=== PATIENT | male | born 1960 | race Caucasian/White ===

== ENCOUNTER → 2016-10-06 | Outpatient (CLI) | payer OTHER ==
[~2016-10-06] MED LIST: AMLO10TA82 PO; AMPH20TA2 PO; ASPI-9 PO; ASPI-983 PO; ASPI325T32 PO; ATOR10TA PO; ATOR10TA66 PO; CLON0.5T3 PO; CLON1TAB27 PO; CLOP75TA28 PO; DESV100T PO; GBPN300C PO; LISI10TA2 PO; METO-272 PO; MULT-608 PO; OLAN20TA3 PO; OMEP20TA7 PO; PROP40TA5 PO; TEST200V3 IM; TMZP15C PO; [UNRECOGNIZED DRUG - OTHER] PO
== END ==
LOC: CARD 09:38
PROVIDERS: ATTEND Internal Medicine
DX: R00.0 Tachycardia, unspecified (principal); R53.83 Other fatigue
CPT/HCPCS: 93005; 93225; 93226

== ENCOUNTER 2016-11-19 08:46 | Outpatient (CLI) | payer OTHER ==
[2016-11-19] VITALS (7 sets, daily range): BP systolic 132–166; BP diastolic 93–115
[~2016-11-19] VITALS: Ht 185.4 cm; Wt 95.3 kg
[~2016-11-19 08:46] MED LIST changes: -AMPH20TA2 PO; -ASPI-9 PO; -ASPI-983 PO; -ASPI325T32 PO; -ATOR10TA PO; -ATOR10TA66 PO; -CLON0.5T3 PO; -CLOP75TA28 PO; -LISI10TA2 PO; -METO-272 PO; -OMEP20TA7 PO; -PROP40TA5 PO
--- OUTSIDE RECORDS SUMMARY | 2016-11-19 08:50 | XMS REPORT | Continuity of Care Document ---
Author Author [facility] Organization [facility] Address Unknown Phone Unavailable Allergies Active Description Code Type Severity Reaction Onset Reported/Identified Relationship to Patient Clinical Status Yes No Known Drug Allergies [id number] Drug Allergy Unknown N/ A 11/05/2010 Medications Problems Date Dx Coded Attending Type Code Diagnosis Diagnosed By 04/20/2011 Ot 288.60 LEUKOCYTOSIS, UNSPECIFIED 04/20/2011 Ot 296.80 BIPOLAR DISORDER, UNSPECIFIED 04/20/2011 Ot 305.1 TOBACCO USE DISORDER 04/20/2011 Ot 783.21 LOSS OF WEIGHT 04/20/2011 Ot 785.6 ENLARGEMENT LYMPH NODES 04/20/2011 Ot V58.69 OTH MED,LT,CURRENT USE 01/30/2012 Ot 530.11 REFLUX ESOPHAGITIS 01/30/2012 Ot 535.40 OTH SPECIFIED GASTRITIS,W/O MENTION OF H 10/06/2016 Ot 288.60 LEUKOCYTOSIS, UNSPECIFIED 10/06/2016 Ot 296.80 BIPOLAR DISORDER, UNSPECIFIED 10/06/2016 Ot 305.1 TOBACCO USE DISORDER 10/06/2016 Ot 783.21 LOSS OF WEIGHT 10/06/2016 Ot 785.6 ENLARGEMENT LYMPH NODES 10/06/2016 Ot V58.69 OTH MED,LT,CURRENT USE 10/06/2016 Ot 346.90 MIGRAINE UNSPECIFIED W/O INTRACT MGRN W/ 10/06/2016 Ot 346.90 MIGRAINE UNSPECIFIED W/O INTRACT MGRN W/ 10/06/2016 Ot V81.5 SCREEN FOR NEPHROPATHY 10/06/2016 Ot 288.60 LEUKOCYTOSIS, UNSPECIFIED 10/06/2016 Ot 784.2 SWELLING IN HEAD NECK 10/06/2016 Ot 785.6 ENLARGEMENT LYMPH NODES 10/06/2016 Ot 787.20 DYSPHAGIA, UNSPECIFIED 10/06/2016 Ot V58.69 OTH MED,LT,CURRENT USE 10/06/2016 Ot 785.6 ENLARGEMENT LYMPH NODES 10/06/2016 Ot 787.20 DYSPHAGIA, UNSPECIFIED 10/06/2016 Ot V72.84 EXAM PRE-OPERATIVE NOS 10/06/2016 Ot 238.71 ESSENTIAL THROMBOCYTHEMIA 10/06/2016 Ot 288.60 LEUKOCYTOSIS, UNSPECIFIED 10/06/2016 Ot 305.1 TOBACCO USE DISORDER 10/06/2016 Ot 530.11 REFLUX ESOPHAGITIS 10/06/2016 Ot 535.40 OTH SPECIFIED GASTRITIS,W/O MENTION OF H 10/06/2016 Ot 785.6 ENLARGEMENT LYMPH NODES 10/06/2016 Ot V58.69 OTH MED,LT,CURRENT USE 10/06/2016 Ot 238.71 ESSENTIAL THROMBOCYTHEMIA 10/06/2016 Ot 288.60 LEUKOCYTOSIS, UNSPECIFIED 10/06/2016 Ot 785.6 ENLARGEMENT LYMPH NODES 10/06/2016 Ot V58.69 OTH MED,LT,CURRENT USE 10/06/2016 BARBARA NABEELANASTACIO N Ot 238.71 ESSENTIAL THROMBOCYTHEMIA 10/06/2016 DEBORA JIMENEZ N Ot 288.60 LEUKOCYTOSIS, UNSPECIFIED 10/06/2016 DEBORA JIMENEZ N Ot 785.6 ENLARGEMENT LYMPH NODES 10/06/2016 DEBORA JIMENEZ N Ot V58.69 OTH MED,LT,CURRENT USE 10/06/2016 ANA WATERS FARM MANAGER Ot 305.1 TOBACCO USE DISORDER 10/06/2016 ANA WATERS FARM MANAGER Ot 585.3 CHRONIC KIDNEY DISEASE, STAGE III ( MODER 10/06/2016 ANA WATERS FARM MANAGER Ot 780.79 OTH MALAISE FATIGUE 10/06/2016 ANA WATERS FARM MANAGER Ot 785.6 ENLARGEMENT LYMPH NODES 10/06/2016 ANA WATERSP Ot V58.69 OTH MED,LT,CURRENT USE 10/06/2016 BARBARA BOBAN N Ot 296.80 BIPOLAR DISORDER, UNSPECIFIED 10/06/2016 BARBARA BOBAN N Ot 780.79 OTH MALAISE FATIGUE 10/06/2016 BARBARA BOBAN N Ot 785.6 ENLARGEMENT LYMPH NODES 10/06/2016 BARBARADEBORA N Ot V58.69 OTH MED,LT,CURRENT USE 10/06/2016 BARBARA BOBAN N Ot 296.80 BIPOLAR DISORDER, UNSPECIFIED 10/06/2016 BARBARA BOBAN N Ot 780.79 OTH MALAISE FATIGUE 10/06/2016 DEBORA JIMENEZ N Ot 785.6 ENLARGEMENT LYMPH NODES 10/06/2016 DEBORA JIMENEZ Ot V58.69 OTH MED,LT,CURRENT USE 10/06/2016 WATERSANA FARM MANAGER Ot 296.80 BIPOLAR DISORDER, UNSPECIFIED 10/06/2016 WATERSANA FARM MANAGER Ot 780.79 OTH MALAISE FATIGUE 10/06/2016 ANA WATERS FARM MANAGER Ot 785.6 ENLARGEMENT LYMPH NODES 10/06/2016 ANA WATERS FARM MANAGER Ot V58.69 OTH MED,LT,CURRENT USE 10/06/2016 DEBORA JIMENEZ N Ot 296.80 BIPOLAR DISORDER, UNSPECIFIED 10/06/2016 DEBORA JIMENEZ N Ot 780.79 OTH MALAISE FATIGUE 10/06/2016 DEBORA JIMENEZ N Ot 785.6 ENLARGEMENT LYMPH NODES 10/06/2016 DEBORA JIMENEZ Ot V58.69 OTH MED,LT,CURRENT USE 10/07/2016 SANTOS CANALES, FRANCIA Lopez Ot R00.0 TACHYCARDIA, UNSPECIFIED 10/07/2016 FRANCIA GRAHAM MD Ot R53.83 OTHER FATIGUE Procedures Results Encounters ACCT No. Visit Date/Time Discharge Status Pt. Type Provider Facility Loc./Unit Complaint [id number] 03/05/2015 02:15:00 2014 23:59:59 CLS Outpatient DEBORA JIMENEZ [facility] ONC [id number] 08/09/2014 13:59:00 2013 23:59:59 CLS Outpatient ANA [employer] FARM MANAGER [facility] ONC [id number] 08/02/2014 08:46:00 2013 23:59:59 CLS Outpatient DEBORA JIMENEZ N [facility] ONC [id number] 02/08/2014 08:55:00 2013 23:59:59 CLS Outpatient DEOBRA JIMENEZ N [facility] ONC [id number] 08/09/2013 14:01:00 2012 23:59:59 CLS Outpatient ANA WATERS FARM MANAGER [facility] ONC [id number] 02/07/2013 13:15:00 2012 23:59:59 CLS Outpatient BARBARA NABEELANASTACIO Aris [facility] ONC [id number] 10/06/2016 09:38:00 ACT Outpatient FRANCIA GRAHAM MD [facility] CARD FATIGUE [id number] 08/05/2012 13:28:00 Document Registration [id number] 02/04/2012 09:01:00 Document Registration [id number] 01/30/2012 06:00:00 Document Registration [id number] 01/29/2012 09:01:00 Document Registration [id number] 01/19/2012 09:00:00 Document Registration [id number] 01/15/2012 10:37:00 Document Registration [id number] 10/27/2011 06:55:00 Document Registration [id number] 10/24/2011 07:32:00 Document Registration [id number] 07/30/2011 14:39:00 Document Registration [id number] 04/07/2011 14:17:00 Document Registration
[2016-11-19] MEDS ORDERED: NS IV 1000 ML 1,000 ML ONE (10:52)
[2016-11-19] MEDS ORDERED: HEParin (CATH LAB) 2,000 ML IV ONE (10:52)
[2016-11-19] MEDS ORDERED: LIDOCAINE 1% INJ 20 ML (XYLOCAINE) VIAL ONE (10:52)
[2016-11-19] MEDS ORDERED: NS IV 1000 ML 1,000 ML IV SCH ×2 (11:09→12:41)
[2016-11-19 11:19] LABS: MEAN PLATELET VOLUME 10.1 FL (7.4-10.4); RED BLOOD COUNT 5.05 10^6/uL (4.35-5.85); RED CELL DISTRIBUTION WIDTH 13.8 % (10.0-14.5); WHITE BLOOD COUNT 10.9 10^3/uL (4.3-11.0)
[2016-11-19] MEDS ORDERED: MIDAZOLAM 5 MG/5 ML (VERSED) VIAL ONE (11:21)
[2016-11-19] MEDS ORDERED: fentaNYL INJECTION 100 MCG/2 ML AMP ONE (11:21)
[2016-11-19 11:24] LABS: INR 0.9 (0.8-1.4); PROTHROMBIN TIME PATIENT 11.8 SEC (12.2-14.7)
[2016-11-19] MEDS ORDERED: PROP40TA5 PO (11:25)
[2016-11-19] MEDS ORDERED: OMEP20TA7 PO (11:25)
[2016-11-19] MEDS ORDERED: LISI10TA2 PO (11:25)
[2016-11-19] MEDS ORDERED: CLON0.5T3 PO (11:25)
[2016-11-19] MEDS ORDERED: AMPH20TA2 PO (11:25)
--- NOTE | 2016-11-19 11:28 | Diagnostic Imaging Report ---
INDICATION: Coronary artery disease, preop cardiac catheterization. Frontal chest obtained at 11:16 a.m. Heart and mediastinal silhouette appear unremarkable. The lungs are clear. There is no pneumothorax or pleural fluid. IMPRESSION: No acute process in the chest. Dictated by: Dictated on workstation # [id number]
[2016-11-19 11:33] LABS: ALANINE AMINOTRANSFERASE 19 U/L (0-55); ALBUMIN 4.5 G/DL (3.2-4.5); ANION GAP 13 MMOL/L (5-14); ASPARTATE AMINO TRANSFERASE 17 U/L (5-34); BILIRUBIN,TOTAL 0.4 MG/DL (0.1-1.0); BLOOD UREA NITROGEN 12 MG/DL (7-18); BUN/CREATININE RATIO 11; CALCIUM 9.6 MG/DL (8.5-10.1); CARBON DIOXIDE 21 MMOL/L (21-32); CHLORIDE 105 MMOL/L (98-107); CHOLESTEROL 253 MG/DL (< 200); CREATININE SERUM 1.07 MG/DL (0.60-1.30); DIRECT LDL 177 MG/DL (1-129); GFR ESTIMATED > 60; GLUCOSE 109 MG/DL (70-105); POTASSIUM 4.4 MMOL/L (3.6-5.0); SODIUM 139 MMOL/L (135-145); TOTAL PROTEIN 7.6 G/DL (6.4-8.2); TRIGLYCERIDES 253 MG/DL (<150); VLDL CHOLESTEROL 51 MG/DL (5-40)
[2016-11-19] MEDS ORDERED: FLU TRIvalent (5 YOA+) 2016-17 (AFLURIA) 0.5 ML IM ONE (11:45)
--- NOTE | 2016-11-19 12:41 | Cardiac Procedure Note-CS/ASA ---
Pre-Procedure Note Pre-Op Procedure Note H&P Reviewed The H&P was reviewed, patient examined and no changes noted. Date H&P Reviewed: Nov 19, 2016 Time H&P Reviewed: 12:41 Conscious Sedation Pre-Proced Time Reviewed: 12:41 ASA Class: 3 Airway Mallampati Classification: ([place] appropriate class) I. II. III, IV Lungs Heart ASA score ASA 1: a normal healthy patient ASA 2: a patient with a mild systemic disease (mid diabetes, controlled hypertension, obesity x ASA 3: a patient with a severe systemic disease that limits activity (angina , COPD, prior Myocardial infarction) ASA 4: a patient with an incapacitating disease that is a constant threat to life (CHF, renal failure) ASA 5: a moribund patient not expected to survive 24 hrs. (ruptured aneurysm) ASA 6: a declared brain patient whose organs are being harvested. For emergent operations, add the letter E after the classification Grade 3 Sedation Plan: Analgesia, Amnesia, Plan communicated to team members, Discussed options with patient/fam, Discussed risks with patient/fam Note The patient is an appropriate candidate to undergo the planned procedure, sedation, and anesthesia. The patient immediately re-assessed prior to indication. CT SAMUEL MD Nov 19, 2016 12:41
[2016-11-19] MEDS ORDERED: ATOR10TA PO (12:43)
[2016-11-19] MEDS ORDERED: ASPI325T32 PO (12:43)
--- NOTE | 2016-11-19 12:44 | Discharge Inst-Post CATH ---
Discharge Inst-CATH Post Cardiac Cath D/C Inst Follow Up/Plan Appointment with Dr Gerald Gonzalez's office next week Appointment with Dr Ng's office in 2-4 weeks CARDIAC CATH DISCHARGE INSTRUCTIONS *Hold Metformin for 48 hours post heart cath. ACTIVITY * Go Home directly and rest. * Limit activity of the leg (or wrist if it was used) for 7 days including aerobics, swimming, jogging, bicycling, etc. * Restrict stair-climbing for 7 days if possible, if not, climb up with your non -cath leg, then bring together on the same step. * Avoid lifting, pushing, pulling or excessive movement of the affected extremity for 7 days. * Customary sexual activity may be resumed after 2 days-use caution not to use a position that strains or causes pain to the affected extremity. * No driving for 24 hours. * NO SMOKING. * Avoid straining for bowel movements for 7 days. * Gentle walking on level ground is allowed. * Returning to work will depend on the type of procedure and the results. Your doctor will discuss this with you. CALL YOUR DOCTOR FOR ANY OF THE FOLLOWING: *If bleeding from the puncture site occurs- Apply gentle pressure to site with clean cloth and call your doctor or EMS. * If a knot or lump forms under the skin, increases in size, or causes pain. * If bruising appears to be worsening or moving further down your leg instead of disappearing. * Temperature above 101 F. CARE OF YOUR GROIN INCISION; * Bruising or purple discoloration of the skin near the puncture site is common. * You may shower only, no bathtub bathing for 5 days. Be careful to avoid slipping as your leg may feel stiff. * If a closure device was used on your femoral artery, please see the attached guide regarding care of the device and your leg. * REMOVE the dressing from your groin the next day after your procedure in the shower. CARE OF YOUR WRIST INCISION; * Bruising or purple discoloration of the skin near the puncture site is common. * You may shower. * DO NOT submerge wrist. * Remove dressing in [address] NG MD Nov 19, 2016 12:44
[2016-11-19] MEDS ORDERED: PATIENT MAY USE OWN MEDS, ALL PO SCH (12:45)
--- NOTE | 2016-11-19 13:54 | ECHOCARDIOGRAPHY REPORT ---
PROCEDURE PHYSICIAN: CT SAMUEL DATE OF PROCEDURE: 11/19/2016 TWO DIMENSIONAL ECHOCARDIOGRAM REPORT PRIMARY PHYSICIAN: OTHER PHYSICIAN: REFERRING PHYSICIAN: Dr. Machado ORDERING PHYSICIAN: INDICATION FOR THE PROCEDURE: Shortness of breath, palpitations MEASUREMENTS DERIVED VALUES LV DIAMETER (LAX) NORMALS NORMALS Diastolic 5.2 (3.6-5.2) Eject. Fract. 40% (60%+/-6%) Systolic (2.3-3.9) Diastolic Vol. % Shortening (0.22-0.42) Systolic Vol. Aortic Root IVS THICKNESS Diastolic 1. (0.6-1.1) LVPW THICKNESS Diastolic 1. (0.6-1.1) LA DIAMETER Systolic 3.8 (2.1-3.7) FINDINGS: 1. Technical quality is good. 2. The left ventricle is dilated with diffuse left ventricular hypokinesia more pronounced at the inferior wall. Systolic function is reduced. Estimated ejection fraction 40%. 3. The left atrium is normal in size. No clot or thrombus were seen within the left atrium. 4. The right atrium and right ventricle are normal in size. No clot or thrombus were seen within the right side. 5. Mitral valve is normal in morphology with mild mitral regurgitation noted by color Doppler flow. No mitral valve prolapse. No mitral valve stenosis. 6. Aortic valve is trileaflet with normal opening and closing pattern. No significant aortic stenosis or regurgitation was seen. 7. Tricuspid valve is normal in morphology with mild tricuspid regurgitation noted by color Doppler flow. Doppler across tricuspid valve estimated pulmonary artery pressure of 34+ right atrial pressure. 8. Pulmonic valve is functioning normally. 9. No pericardial effusion. CONCLUSION: 1. Dilated left ventricle with diffuse left ventricular hypokinesia more pronounced at the inferior wall. Systolic function is reduced. Estimated ejection fraction 40%. 2. Mild mitral and tricuspid regurgitation. 3. Estimated pulmonary artery pressure of 40 mmHg. Job ID: [id number] Dictated Date: 11/19/2016 13:24:00 County Judge Date: 11/19/2016 13:49:38 / kyle
--- NOTE | 2016-11-19 15:04 | STRESS TEST ---
PROCEDURE PHYSICIAN: CT SAMUEL EXERCISE STRESS ECHOCARDIOGRAM REPORT DATE OF PROCEDURE: 11/19/2016 REFERRING PHYSICIAN: Dr. Machado. INDICATION FOR THE PROCEDURE: Hypertension. Baseline heart rate is 98, baseline blood pressure: 156/85. Baseline EKG: Sinus rhythm with no ischemic changes. SUMMARY: The patient started exercising with a baseline heart rate, blood pressure, EKG mentioned above. He was able to exercise for a total of 5 minutes on standard [place] protocol, achieving maximum heart rate of 159, which is 96% of maximum expected heart rate. With peak exercise level, EKG was showing minimal nondiagnostic changes. Blood pressure was 156/85. During recovery, heart rate and blood pressure returned to baseline. EKG returned to baseline. Echocardiographic images were acquired and reviewed in the parasternal long axis parasternal short axis, apical 4 chamber and apical 2 chamber views. Review of the images showed normal left ventricular size with hypokinesia at the inferior wall that slightly improved during exercise test, lateral wall and anterior wall appeared to be mildly hypokinetic. CONCLUSION: 1. Fair exercise tolerance a total of 5 minutes on standard [place] protocol. Total 7 METs, achieving 96% of maximum expected heart rate. 2. Nondiagnostic EKG changes with exercise. Returned to baseline during recovery. 3. Mild hypokinesia involving the inferior wall, the resting images with slight improvement during stress test. 4. Exercise-induced hypokinesia involving the anterior wall, anterolateral wall. Job ID: [id number] Dictated Date: 11/19/2016 13:35:01 Coal Conveyor Operator Date: 11/19/2016 15:00:09 / kyle
[2016-11-19] MEDS ORDERED: ACETAMINOPHEN 325 MG TABLET/CAPLET (TYLENOL) PO PRN (16:00)
--- NOTE | 2016-11-20 12:14 | CARDIAC CATHETERIZATION ---
PROCEDURE PHYSICIAN: CT SAMUEL DATE OF PROCEDURE: 11/19/2016 REFERRING PHYSICIAN: Dr. Santi Machado BRIEF HISTORY: Mr. Noland is a 55-year-old gentleman with a history of hypertension. I saw him in my office for increasing shortness of breath, palpitations. He underwent an exercise stress echo which showed hypokinesia at the inferior wall at rest, improved at stress with hypokinesia induced by stress involving the anterior wall and lateral wall. He was brought for cardiac catheterization. PROCEDURE NOTE: After explaining the procedure to the patient, all pros and cons were explained. All questions were answered. The patient signed the consent that he was placed on the cardiac catheterization laboratory. The right groin was prepped in a sterile fashion. Local anesthesia applied to right groin. 6-Croat[place] sheath was placed in the right femoral artery. Combination of right and left Stephanie catheter were used to access the right and left coronary system. Multiple views were obtained. Pigtail catheter advanced to the left ventricular cavity. Left ventriculogram was done. Pullback LV to aorta was done. The aortic arch angiogram was done. At the end of the procedure, sheath was removed. Mynx device deployed. Hemostasis achieved. FINDINGS: HEMODYNAMICS: LV pressure 120/7, end-diastolic pressure of 7, aortic pressure 131/83, mean of 90. ANATOMY: 1. Left main coronary artery is bifurcating to left anterior descending and left circumflex artery with no obstructive disease in the left main coronary artery. 2. Left anterior descending artery is moderate in size with 70% stenosis in the mid LAD. 3. Left circumflex artery is moderate in size. First obtuse marginal branch has 60% stenosis. 4. Right coronary artery is dominant artery, totally occluded at the midportion, getting collateral from the left system. 5. Left ventricle is dilated with diffuse left ventricular hypokinesia more pronounced at the inferior wall. Estimated ejection fraction 40%. 6. Aortic arch angiogram aortic arch is normal in size. No dissection or aneurysm was noted. Origin of the innominate artery, left subclavian and left carotid appeared normal. CONCLUSION: 1. Severe multivessel disease including total occlusion of the right coronary artery, getting collateral from the left system. Severe stenosis at the mid LAD, moderate to severe stenosis at the first obtuse marginal branch. 2. Dilated left ventricle with diffuse left ventricular hypokinesia more pronounced at the inferior wall. Estimated ejection fraction 40%. DISCUSSION AND RECOMMENDATION: Mr. Noland had hypokinesia at the inferior wall appeared to be improved during stress test, suggestive of viability of the inferior wall. He would benefit from evaluation for bypass surgery. I will arrange for evaluation. The patient will be discharged home today. Job ID: [id number] Dictated Date: 11/19/2016 12:50:13 Geology Faculty Member Date: 11/20/2016 11:48:07 / kyle
--- NOTE | 2016-11-20 12:17 | DISCHARGE SUMMARY ---
PROCEDURE PHYSICIAN: CT SAMUEL DATE OF PROCEDURE: 11/19/2016 REFERRING PHYSICIAN: Dr. Santi Machado BRIEF HISTORY: Mr. Noland is a 55-year-old gentleman with a history of hypertension. I saw him in my office for increasing shortness of breath, palpitations. He underwent an exercise stress echo which showed hypokinesia at the inferior wall at rest, improved at stress with hypokinesia induced by stress involving the anterior wall and lateral wall. He was brought for cardiac catheterization. PROCEDURE NOTE: After explaining the procedure to the patient, all pros and cons were explained. All questions were answered. The patient signed the consent that he was placed on the cardiac catheterization laboratory. The right groin was prepped in a sterile fashion. Local anesthesia applied to right groin. 6-Nepali sheath was placed in the right femoral artery. Combination of right and left Stephanie catheter were used to access the right and left coronary system. Multiple views were obtained. Pigtail catheter advanced to the left ventricular cavity. Left ventriculogram was done. Pullback LV to aorta was done. The aortic arch angiogram was done. At the end of the procedure, sheath was removed. Mynx device deployed. Hemostasis achieved. FINDINGS: HEMODYNAMICS: LV pressure 120/7, end-diastolic pressure of 7, aortic pressure 131/83, mean of 90. ANATOMY: 1. Left main coronary artery is bifurcating to left anterior descending and left circumflex artery with no obstructive disease in the left main coronary artery. 2. Left anterior descending artery is moderate in size with 70% stenosis in the mid LAD. 3. Left circumflex artery is moderate in size. First obtuse marginal branch has 60% stenosis. 4. Right coronary artery is dominant artery, totally occluded at the midportion, getting collateral from the left system. 5. Left ventricle is dilated with diffuse left ventricular hypokinesia more pronounced at the inferior wall. Estimated ejection fraction 40%. 6. Aortic arch angiogram aortic arch is normal in size. No dissection or aneurysm was noted. Origin of the innominate artery, left subclavian and left carotid appeared normal. CONCLUSION: 1. Severe multivessel disease including total occlusion of the right coronary artery, getting collateral from the left system. Severe stenosis at the mid LAD, moderate to severe stenosis at the first obtuse marginal branch. 2. Dilated left ventricle with diffuse left ventricular hypokinesia more pronounced at the inferior wall. Estimated ejection fraction 40%. DISCUSSION AND RECOMMENDATION: Mr. Noland had hypokinesia at the inferior wall appeared to be improved during stress test, suggestive of viability of the inferior wall. He would benefit from evaluation for bypass surgery. I will arrange for evaluation. The patient will be discharged home today. FINAL DIAGNOSIS: 1. Coronary artery disease. 2. Congestive heart failure, chronic compensated left ventricular systolic dysfunction, ischemic cardiomyopathy. Ejection fraction 40%. 3. Hypertension. 4. Hyperlipidemia. Job ID: [id number] Dictated Date: 11/19/2016 12:50:13 Hydrator Date: 11/20/2016 12:14:16/kyle
== END 2016-11-19 18:00 | disposition home or self-care (01) ==
LOC: CARD 08:46 → ICU 13:00 → CARD 18:00
PROVIDERS: ATTEND Internal Medicine Cardiovascular Disease
DX: I10 Essential (primary) hypertension (principal); R00.0 Tachycardia, unspecified; F31.9 Bipolar disorder, unspecified; Z72.0 Tobacco use; Z79.899 Other long term (current) drug therapy
CPT/HCPCS: 36221; 36415; 71010; 80053; 80061; 85027; 85610; 85730; 87081; 93306; 93351; 93458

== ENCOUNTER → 2016-12-29 | Outpatient (CLI) | payer OTHER ==
[~2016-12-29] MED LIST changes: +AMPH20TA2 PO; +ASPI-9 PO; +ASPI-983 PO; +ASPI325T32 PO; +ATOR10TA PO; +ATOR10TA66 PO; +CLON0.5T3 PO; +CLOP75TA28 PO; +LISI10TA2 PO; +METO-272 PO; +OMEP20TA7 PO; +PROP40TA5 PO
--- NOTE | 2016-12-29 12:53 | Diagnostic Imaging Report ---
INDICATION: Shortness of air. Compared 11/19/2016. FINDINGS: Left pleural fluid, subpulmonic as well as interfissural, has developed in the interim. The right lung and pleural space negative. Sternal wires midline. The heart size and vascularity within normal limits. IMPRESSION: Development of left-sided pleural fluid. Interval sternotomy. No pneumothorax or pneumonia. Dictated by: Dictated on workstation # [id number]
== END ==
LOC: RAD 11:35
PROVIDERS: ATTEND Internal Medicine
DX: R06.00 Dyspnea, unspecified (principal)
CPT/HCPCS: 71020

== ENCOUNTER → 2017-01-01 | Outpatient (CLI) | payer OTHER ==
[2017-01-01 11:51] LABS: CREATININE SERUM 2.39 MG/DL (0.60-1.30)
--- NOTE | 2017-01-01 13:15 | Diagnostic Imaging Report ---
PROCEDURE: CT chest without contrast. TECHNIQUE: Multiple contiguous axial images were obtained through the chest without the use of intravenous contrast. INDICATION: Dyspnea. FINDINGS: There is a small/ moderate left pleural effusion with small amount of pleural fluid within the left major fissure. Minimal associated pulmonary atelectasis is seen with no significant consolidation or mass. No suspicious nodule. Bilateral emphysema changes seen. There are multiple subpleural blebs seen in the upper lungs. The heart size is normal. No pericardial effusion of significance. Evidence of CABG surgery is seen with sternotomy wires noted. There is minimal distraction and 4-mm gap in the sternum inferiorly. The sternum fragments superiorly are better opposed. No significant fluid collection at the operative site with stranding seen, normal for recent surgery. The thoracic aorta is normal in caliber. No mediastinal mass or lymphadenopathy. No axillary lymphadenopathy. The hilar vessels are not opacified with no obvious hilar mass seen. There is fullness in the lateral aspect of the upper left kidney of uncertain etiology. Suggestion of a 2.4-cm cyst in the upper pole of the right kidney is seen. The osseous structures appear grossly unremarkable. IMPRESSION: 1. There is a small to moderate left pleural effusion. 2. Fullness in the lateral aspect of the upper left kidney of uncertain etiology. Ultrasound evaluation is recommended. Report was stat faxed to office of Dr. Anton Joe @ 1:13 PM/janette. Dictated by: Dictated on workstation # [id number]
== END ==
LOC: RAD 11:17
PROVIDERS: ATTEND Internal Medicine Critical Care Medicine
DX: J90 Pleural effusion, not elsewhere classified (principal); I25.10 Atherosclerotic heart disease of native coronary artery without angina pectoris; E78.2 Mixed hyperlipidemia
CPT/HCPCS: 36415; 71250; 82565; 84520

== ENCOUNTER 2017-01-05 15:03 | Observation (INO) | payer OTHER ==
[~2017-01-05] VITALS: Ht 185.4 cm; Wt 90.7 kg
[2017-01-05] VITALS (9 sets, daily range): BP systolic 87–113; BP diastolic 50–64
[~2017-01-05 15:03] MED LIST changes: -ASPI-9 PO; -ASPI-983 PO; -ATOR10TA66 PO; -CLOP75TA28 PO; -METO-272 PO
[2017-01-05] MEDS ORDERED: CLOP75TA28 PO (15:43)
[2017-01-05] MEDS ORDERED: ATOR10TA66 PO (15:43)
[2017-01-05] MEDS ORDERED: METO-272 PO (15:43)
[2017-01-05] MEDS ORDERED: ASPI-9 PO (15:43)
[2017-01-05 15:47] LABS: MEAN PLATELET VOLUME 9.6 FL (7.4-10.4); RED BLOOD COUNT 3.48 10^6/uL (4.35-5.85); RED CELL DISTRIBUTION WIDTH 14.2 % (10.0-14.5)
[2017-01-05] MEDS ORDERED: ASPI-983 PO (15:47)
[2017-01-05 16:10] LABS: ALANINE AMINOTRANSFERASE 17 U/L (0-55); ALBUMIN 3.1 G/DL (3.2-4.5); ANION GAP 15 MMOL/L (5-14); ASPARTATE AMINO TRANSFERASE 11 U/L (5-34); BILIRUBIN,TOTAL 0.4 MG/DL (0.1-1.0); BLOOD UREA NITROGEN 64 MG/DL (7-18); BUN/CREATININE RATIO 12; CALCIUM 9.4 MG/DL (8.5-10.1); CARBON DIOXIDE 17 MMOL/L (21-32); CHLORIDE 99 MMOL/L (98-107); CHOLESTEROL 103 MG/DL (< 200); CREATININE SERUM 5.27 MG/DL (0.60-1.30); DIRECT LDL 22 MG/DL (1-129); GFR ESTIMATED 11; GLUCOSE 109 MG/DL (70-105); MAGNESIUM 1.4 MG/DL (1.8-2.4); POTASSIUM 5.2 MMOL/L (3.6-5.0); SODIUM 131 MMOL/L (135-145); TRIGLYCERIDES 174 MG/DL (<150); VLDL CHOLESTEROL 35 MG/DL (5-40)
[2017-01-05 16:15] LABS: TROPONIN I < 0.30 NG/ML (<0.30)
[2017-01-05] MEDS ORDERED: NS IV 1000 ML 1,000 ML ONE (16:28)
[2017-01-05] MEDS ORDERED: NS IV 1000 ML 1,000 ML IV SCH ×2 (17:00→18:30)
--- NOTE | 2017-01-05 17:08 | Short Stay Summary ---
History of Present Illness History of Present Illness Reason for visit/HPI Hypotensive shock This is a 56 years old gentleman with history of coronary artery disease as described below. Had extensive history, he was seen by his primary care physician Dr. Graham this afternoon and I was called due to the fact that he has been hypotensive. It felt that he has worsening of his symptoms, has been complaining of generalized fatigue, diaphoresis, lethargy. He is reporting night sweats for the last 24 hour generalized fatigue and loss of energy. Was having shortness of breath and noted to have left-sided pleural effusion which was worsening, had CT scan of the chest. Date of Admission Jan 05, 2017 at 15:15 Date of Discharge January 05, 2017 Attending Physician José Ng MD Admitting Physician Francia Graham MD Consult Allergies and Home Medications Allergies Coded Allergies: bupropion (Verified Allergy, Severe, SEIZURE, 01/05/17) Home Medications Aspirin 81 Mg Tablet.dr, 81 MG PO DAILY, (Reported) Atorvastatin Calcium 10 Mg Tablet, 10 MG PO HS, (Reported) Clonazepam 0.5 Mg Tablet, 0.5 MG PO BID PRN for ANXIETY, (Reported) Clopidogrel Bisulfate 75 Mg Tablet, 75 MG PO DAILY, (Reported) Lisinopril 10 Mg Tablet, 10 MG PO DAILY, (Reported) Metoprolol Succinate 50 Mg Tab.er.24h, 50 MG PO HS, (Reported) Omeprazole 20 Mg Tablet.dr, 20 MG PO DAILY PRN for INDIGESTION, (Reported) Temazepam 15 Mg Capsule, 15-30 MG PO HS PRN for SLEEP, (Reported) TAKES 1-2 (15 MG) CAPSULES Past Kssznie-Ciemwn-Bnaucx Hx Patient Social History Marrital Status: single Alcohol Use: Denies Use Recreational Drug Use: No Type Used: Cigarettes Physical Abuse Screen: No Sexual Abuse: No Recent Hopitalizations: Yes Seasonal Allergies Seasonal Allergies: No Surgeries HX Surgeries: Yes Respiratory Hx Respiratory Disorders: No Cardiovascular Hx Cardiovascular Disorders: No Neurological Hx Neurological Disorders: No Reproductive System Hx Reproductive Disorders: No Sexually Transmitted Disease: No Genitourinary Hx Genitourinary Disorders: No Genitourinary Disorders: Renal Failure Gastrointestinal Hx Gastrointestinal Disorders: No Gastrointestinal Disorders: Gastroesophageal Reflux Musculoskeletal Hx Musculoskeletal Disorders: No Endocrine Hx Endocrine Disorders: Yes (enlarged lymph nodes; pre-lymphoma) HEENT HX ENT Disorders: No Psychosocial Behavioral Health Disorders: ADD/ADHD, Anxiety, PTSD, Bipolar, Depression Blood Transfusions Hx Blood Disorders: Yes (ELEVATED WBC AND PLATELETS IN THE PAST) Family Medical History Other Significan Family Hx: noncontributory to his current condition Constitutional: see HPI, chills, diaphoresis, No dizziness, fever, malaise, weakness, No weight gain, No weight loss, No other EENTM: no symptoms reported, see HPI Respiratory: see HPI, No cough, dyspnea on exertion, No hemoptysis, orthopnea, No phlegm, short of breath, No stridor, No wheezing, No other Cardiovascular: see HPI, chest pain, No edema, No Hx of Intervention, palpitations, No syncope, No vascular heart diseas, No other Gastrointestinal: no symptoms reported, see HPI Genitourinary: see HPI, decreased output, No discharge, No dysuria, No frequency, No hematuria, No hesitancy, No incontinence, No nocturia, No pain, No other Musculoskeletal: see HPI, No back pain, No gout, No joint pain, No joint swelling, No muscle pain, No muscle stiffness, No muscle cramps, No muscle twitching, No muscle weakness, No neck pain, No other Skin: no symptoms reported, see HPI Psychiatric/Neurological: No Symptoms Reported, See HPI Physical Exam Vital Signs Vital Sign - Last 12Hours 01/05/17 15:10 Temp 98.6 Pulse 112 Resp 14 B/P (MAP) 94/52 Pulse Ox 98 O2 Delivery Room Air Capillary Refill : Less Than 3 Seconds General Appearance: WD/WN, Moderate Distress Eyes: Bilateral Eye EOMI, Bilateral Eye Normal Inspection, Bilateral Eye PERRL HEENT: PERRL/EOMI, TMs Normal, Normal ENT Inspection, Pharynx Normal Neck: Full Range of Motion, Normal Inspection, Non Tender, Supple, Carotid Bruit Respiratory: Chest Non Tender, No Accessory Muscle Use, No Respiratory Distress , Crackles, Decreased Breath Sounds Cardiovascular: Regular Rate, Rhythm, No JVD, Normal Peripheral Pulses, Systolic Murmur, Gallop/S3 Gastrointestinal: Normal Bowel Sounds, No Organomegaly, No Pulsatile Mass, Non Tender, Soft Back: Normal Inspection, No CVA Tenderness, No Vertebral Tenderness Extremity: Normal Capillary Refill, Normal Inspection, Normal Range of Motion, Non Tender, No Calf Tenderness, No Pedal Edema Neurologic/Psychiatric: Alert, Oriented x3, No Motor/Sensory Deficits, Normal Mood/Affect Skin: Normal Color, Warm/Dry Lymphatic: No Adenopathy Clinical Quality Measures DVT/VTE Risk/Contraindication: Risk Factor Score Per Nursin RFS Level Per Nursing on Admit: 1=Low/No VTE PPX Short Stay Diagnosis Discharge Diagnosis-Short Stay Admission Diagnosis: Hypotension Severe sepsis Coronary artery disease Congestive heart failure chronic compensated left ventricular systolic dysfunction Final Discharge Diagnosis: Hypotension Severe sepsis Coronary artery disease Congestive heart failure, chronic compensated left ventricular systolic dysfunction, ischemic cardiomyopathy. Conclusion Labs Laboratory Tests 01/05/17 15:40: White Blood Count 63.0*H, Red Blood Count 3.48L, Hemoglobin 10.4L, Hematocrit 31L, Mean Corpuscular Volume 88, Mean Corpuscular Hemoglobin 30, Mean Corpuscular Hemoglobin Concent 34, Red Cell Distribution Width 14.2, Platelet Count 680H, Mean Platelet Volume 9.6, Sodium Level 131L, Potassium Level 5.2H, Chloride Level 99, Carbon Dioxide Level 17L, Anion Gap 15H, Blood Urea Nitrogen 64H, Creatinine 5.27H, Estimat Glomerular Filtration Rate 11, BUN/Creatinine Ratio 12, Glucose Level 109H, Calcium Level 9.4, Magnesium Level 1.4L, Total Bilirubin 0.4, Aspartate Amino Transf (AST/SGOT) 11, Alanine Aminotransferase ( ALT/SGPT) 17, Alkaline Phosphatase 229H, Troponin I < 0.30, B-Type Natriuretic Peptide 175.6H, Total Protein 7.0, Albumin 3.1L, Triglycerides Level 174H, Cholesterol Level 103, LDL Cholesterol Direct 22, VLDL Cholesterol 35, HDL Cholesterol < 15L Conclusion/Plan Hypotensive shock, unknown etiology, probably septic, elevated white count which appear to be significantly high forceps is only. I will evaluate blood culture and lactic acid level. Started on IV fluid bolus, discussed it with the manager fine at [facility] where patient will be transferred, I will give him one dose of vancomycin and start him on Zosyn at this time. Leukocytosis, history of Lymphoid reaction in the remote past, WBC were normal last month Severe sepsis, septic shock. Started on IV fluid and antibiotics. Acute renal failure, patient has history of chronic renal insufficiency which appeared to be deteriorating quickly. Continue with IV fluid, he will be evaluated by a aircraft refueler. Pleural effusion, noted on his CT scan last week. Coronary artery disease cardiac catheterization was done on November 19, 2016 showing severe multi-vessel disease with dilated left ventricle. Underwent CABG [address] Gerald Gonzalez on November 28, 2016 using non-reversed vein graft to the diagonal artery and posterior descending branch of the right coronary artery , FELIPE to the LAD. Patient had moderate disease in the obtuse marginal branch that was treated conservatively. monitor closely. Congestive heart failure, chronic left ventricular systolic dysfunction ejection fraction 40 percent, maintained on propranolol and lisinopril, cannot tolerate beta blockers, WENDIE inhibitor and/or ARB due to hypotension History of hypertension, currently hypotensive, receiving IV fluid. Monitor closely. Sinus tachycardia, persistent, heart rate around 120. Monitor closely. Gastroesophageal reflux disease, maintained on omeprazole PTSD and ADD, has been followed and managed by primary care physician. Tobaccoism, educated on smoking cessation again and emphasized the importance of smoking cessation. History of one episode of chest pain in October 2015. History of neck pain and back pain. History of tonsillectomy, inguinal hernia repair Copy Copies To 1: FRANCIA GRAHAM MD, BASHAR J MD Jan 05, 2017 17:08
[2017-01-05] MEDS ORDERED: PIPERACILLIN SODIUM/TAZOBACTAM 4.5 GM in NS (IVPB) 100 ML IV NR (17:15)
[2017-01-05] MEDS ORDERED: VANCOMYCIN INJECTION 1,000 MG in NS (IVPB) 250 ML IV NR (17:15)
[2017-01-05] MEDS ORDERED: oxyCODONE/APAP 5/325MG (PERCOCET 5) TABLET ONE (18:30)
[2017-01-05] MEDS ORDERED: oxyCODONE/APAP 5/325MG (PERCOCET 5) TABLET PO NR (18:30)
[2017-01-05] MEDS ORDERED: ONDANSETRON 4 MG/2 ML (SDV) Z0FRAN IVP NR (18:45)
[2017-01-05] MEDS ORDERED: ONDANSETRON 4 MG/2 ML (SDV) Z0FRAN IVP ONE (18:45)
== END 2017-01-05 20:57 | disposition short-term general hospital (02) ==
LOC: INTOOBSV 15:10 → ICU 15:10 → UNDOADMIN 15:15 → ICU 15:15 → UNDODISIN 20:57
PROVIDERS: ADMIT Internal Medicine Cardiovascular Disease; ATTEND Internal Medicine Cardiovascular Disease
DX: A41.9 Sepsis, unspecified organism (principal); R65.21 Severe sepsis with septic shock; N17.9 Acute kidney failure, unspecified; I13.0 Hypertensive heart and chronic kidney disease with heart failure and stage 1 through stage 4 chronic kidney disease, or unspecified chronic kidney disease; I50.22 Chronic systolic (congestive) heart failure; N18.9 Chronic kidney disease, unspecified; I25.10 Atherosclerotic heart disease of native coronary artery without angina pectoris; I25.5 Ischemic cardiomyopathy; K21.9 Gastro-esophageal reflux disease without esophagitis; F17.210 Nicotine dependence, cigarettes, uncomplicated; F43.10 Post-traumatic stress disorder, unspecified; F98.8 Other specified behavioral and emotional disorders with onset usually occurring in childhood and adolescence; Z95.1 Presence of aortocoronary bypass graft
CPT/HCPCS: 36415; 80053; 80061; 83605; 83735; 83880; 84484; 85027; 87040; 99211; G0378

== ENCOUNTER → 2017-03-18 | Outpatient (CLI) | payer OTHER ==
[~2017-03-18] MED LIST changes: +ASPI-9 PO; +ASPI-983 PO; +ATOR10TA66 PO; +CLOP75TA28 PO; +METO-272 PO
== END ==
DX: R07.89 Other chest pain (principal); R05 Cough

== ENCOUNTER → 2017-08-25 | Outpatient (CLI) | payer OTHER ==
[~2017-08-25] MED LIST changes: -METO-272 PO; +METO-370 PO
== END ==
LOC: CARD 12:05
PROVIDERS: ATTEND Physician Assistant
DX: I25.10 Atherosclerotic heart disease of native coronary artery without angina pectoris (principal); I12.9 Hypertensive chronic kidney disease with stage 1 through stage 4 chronic kidney disease, or unspecified chronic kidney disease; N18.3 Chronic kidney disease, stage 3 (moderate); E78.2 Mixed hyperlipidemia
CPT/HCPCS: 93306

== ENCOUNTER → 2017-08-26 | Outpatient (CLI) | payer OTHER ==
[~2017-08-26] MED LIST changes: +CATHETER FLUSH 10 ML SYR IV PRN; +REGADENOSON 0.4 MG/5 ML SYR (LEXISCAN) IV ONE
[2017-08-26 09:42] VITALS: BP 147/99
--- NOTE | 2017-08-26 22:16 | STRESS TEST ---
DATE OF SERVICE: 08/26/2017 LEXISCAN MYOVIEW STRESS TEST REPORT REFERRING PHYSICIAN: Dr. Santi Machado. Baseline heart rate is 81. Baseline blood pressure 149/98. Baseline EKG is sinus rhythm with no ischemic changes. In summary, the patient was scheduled initially for exercise stress test. He was injected with 10.55 mCi of technetium-99 Myoview, was unable to exercise, test was terminated and converted to Lexiscan Myoview stress test. The patient received 0.4 mg of Lexiscan followed by 29.7 mCi of technetium-99 Myoview. Throughout the test, there were no EKG changes. The resting and stress images were reviewed and compared in the short axis, horizontal long axis, and vertical long axis views. Review of the images showed fix defect involving the whole inferior wall and inferoseptum with subtle reversibility. SSS is 14. SDS 2, TID value 1.07. On the gated images, the left ventricle appeared to be dilated with diffuse left ventricular hypokinesia, dyskinesia of the inferior wall calculated ejection fraction 27%. CONCLUSION: The patient was unable to exercise, test was converted to Lexiscan Myoview stress test. 1. The patient tolerated Lexiscan well. 2. Fixed defect involving the whole inferior wall with mild periinfarct ischemia. 3. Dilated left ventricle with diffuse left ventricular hypokinesia, dyskinesia of the inferior wall and inferior septum. Calculated ejection fraction 27%. Job ID: [id number] DocumentID: [id number] Dictated Date: 08/26/2017 16:04:19 Contract Officer Date: 08/26/2017 20:07:34 Dictated By: CT SAMUEL MD
== END ==
LOC: CARD 07:44
PROVIDERS: ATTEND Physician Assistant
DX: I25.10 Atherosclerotic heart disease of native coronary artery without angina pectoris (principal); I12.9 Hypertensive chronic kidney disease with stage 1 through stage 4 chronic kidney disease, or unspecified chronic kidney disease; N18.3 Chronic kidney disease, stage 3 (moderate); E78.2 Mixed hyperlipidemia
CPT/HCPCS: 78452; 93017

== ENCOUNTER 2017-09-02 11:08 | Day surgery (SDC) | payer OTHER ==
[2017-09-02] VITALS (10 sets, daily range): BP systolic 117–133; BP diastolic 70–97
[~2017-09-02] VITALS: Ht 185.4 cm; Wt 90.7 kg
[~2017-09-02 11:08] MED LIST changes: -CATHETER FLUSH 10 ML SYR IV PRN; -REGADENOSON 0.4 MG/5 ML SYR (LEXISCAN) IV ONE
[2017-09-02] MEDS ORDERED: NS IV 1000 ML 1,000 ML ONE (11:13)
[2017-09-02] MEDS ORDERED: HEParin (CATH LAB) 2,000 ML IV ONE (11:13)
[2017-09-02] MEDS ORDERED: LIDOCAINE 1% INJ 50 ML (XYLOCAINE) VIAL ONE (11:13)
[2017-09-02] MEDS ORDERED: NS IV 1000 ML 1,000 ML IV SCH ×2 (11:30→12:25)
[2017-09-02 11:40] LABS: MEAN PLATELET VOLUME 9.6 FL (7.4-10.4); RED BLOOD COUNT 5.09 10^6/uL (4.35-5.85); RED CELL DISTRIBUTION WIDTH 14.9 % (10.0-14.5); WHITE BLOOD COUNT 11.2 10^3/uL (4.3-11.0)
[2017-09-02] MEDS ORDERED: fentaNYL INJECTION 100 MCG/2 ML AMP ONE (11:46)
[2017-09-02] MEDS ORDERED: MIDAZOLAM 2 MG/2 ML (VERSED) VIAL ONE (11:46)
--- NOTE | 2017-09-02 11:46 | Cardiac Procedure Note-CS/ASA ---
Pre-Procedure Note Pre-Op Procedure Note H&P Reviewed The H&P was reviewed, patient examined and no changes noted. Date H&P Reviewed: Sep 02, 2017 Time H&P Reviewed: 11:46 Conscious Sedation Pre-Proced Time Reviewed: 11:46 ASA Class: 3 Airway Mallampati Classification: ([place] appropriate class) I. II. III, IV Lungs Heart ASA score ASA 1: a normal healthy patient ASA 2: a patient with a mild systemic disease (mid diabetes, controlled hypertension, obesity x ASA 3: a patient with a severe systemic disease that limits activity (angina , COPD, prior Myocardial infarction) ASA 4: a patient with an incapacitating disease that is a constant threat to life (CHF, renal failure) ASA 5: a moribund patient not expected to survive 24 hrs. (ruptured aneurysm) ASA 6: a declared brain patient whose organs are being harvested. For emergent operations, add the letter E after the classification Grade 3 Sedation Plan: Analgesia, Amnesia, Plan communicated to team members, Discussed options with patient/fam, Discussed risks with patient/fam Note The patient is an appropriate candidate to undergo the planned procedure, sedation, and anesthesia. The patient immediately re-assessed prior to indication. CT SAMUEL MD Sep 02, 2017 11:46
[2017-09-02] MEDS ORDERED: SACU1TAB PO (11:48)
[2017-09-02] MEDS ORDERED: MULT-35 PO (11:48)
[2017-09-02] MEDS ORDERED: ACET-2650 PO (11:48)
[2017-09-02 11:51] LABS: INR 0.9 (0.8-1.4); PROTHROMBIN TIME PATIENT 11.8 SEC (12.2-14.7)
--- NOTE | 2017-09-02 11:52 | Diagnostic Imaging Report ---
INDICATION: Cardiac disease. FINDINGS: The sternal wires are midline. The heart size and configuration are normal. No vascular congestion. No edema, pneumonia, effusion, or pneumothorax. IMPRESSION: Negative. Dictated by: Dictated on workstation # [id number]
[2017-09-02 12:00] LABS: ALBUMIN 4.4 GM/DL (3.2-4.5); BILIRUBIN,TOTAL 0.4 MG/DL (0.1-1.0); CALCIUM 9.5 MG/DL (8.5-10.1); CREATININE SERUM 1.39 MG/DL (0.60-1.30); POTASSIUM 4.1 MMOL/L (3.6-5.0); TOTAL PROTEIN 7.8 GM/DL (6.4-8.2)
[2017-09-02] MEDS ORDERED: INFLUENZA TRIvalent 2017-2018 0.5 ML/45 MCG SYR IM ONE (12:00)
[2017-09-02] MEDS ORDERED: ATOR10TA PO (12:28)
--- NOTE | 2017-09-02 12:29 | Discharge Inst-Post CATH ---
Discharge Inst-CATH Post Cardiac Cath D/C Inst Follow Up/Plan Appointment with Dr. Ng's office in one to 2 weeks CARDIAC CATH DISCHARGE INSTRUCTIONS *Hold Metformin for 48 hours post heart cath. ACTIVITY * Go Home directly and rest. * Limit activity of the leg (or wrist if it was used) for 7 days including aerobics, swimming, jogging, bicycling, etc. * Restrict stair-climbing for 7 days if possible, if not, climb up with your non -cath leg, then bring together on the same step. * Avoid lifting, pushing, pulling or excessive movement of the affected extremity for 7 days. * Customary sexual activity may be resumed after 2 days-use caution not to use a position that strains or causes pain to the affected extremity. * No driving for 24 hours. * NO SMOKING. * Avoid straining for bowel movements for 7 days. * Gentle walking on level ground is allowed. * Returning to work will depend on the type of procedure and the results. Your doctor will discuss this with you. CALL YOUR DOCTOR FOR ANY OF THE FOLLOWING: *If bleeding from the puncture site occurs- Apply gentle pressure to site with clean cloth and call your doctor or EMS. * If a knot or lump forms under the skin, increases in size, or causes pain. * If bruising appears to be worsening or moving further down your leg instead of disappearing. * Temperature above 101 F. CARE OF YOUR GROIN INCISION; * Bruising or purple discoloration of the skin near the puncture site is common. * You may shower only, no bathtub bathing for 5 days. Be careful to avoid slipping as your leg may feel stiff. * If a closure device was used on your femoral artery, please see the attached guide regarding care of the device and your leg. * REMOVE the dressing from your groin the next day after your procedure in the shower. CARE OF YOUR WRIST INCISION; * Bruising or purple discoloration of the skin near the puncture site is common. * You may shower. * DO NOT submerge wrist. * Remove dressing in [address] NG MD Sep 02, 2017 12:29
[2017-09-02] MEDS ORDERED: PATIENT MAY USE OWN MEDS, ALL PO SCH (12:30)
--- NOTE | 2017-09-02 12:35 | Cardiac Cath Report ---
Cardiac Cath Report Physician (s)/Aircraft Electrician (s) Physician CT SAMUEL MD Pre-Procedure Diagnosis Pre-Procedure Diagnosis: coronary artery disease Post-Procedure Note Procedure Start Date: Sep 02, 2017 Name of Procedure: left heart catheterization Vein graft angiogram ALEX angiogram Left ventricular pressure [id number] Findings/Procedure Note PROCEDURE NOTE: After explaining the procedure to the patient, all pros and cons were explained, all questions were answered. The patient signed the consent and then she was placed on the cardiac catheterization laboratory. The patient was placed on the cardiac catheterization laboratory. Groin was prepped SL fashion local anesthesia was used. Sheath placed in the right femoral artery. Stephanie right and left catheter were used to access the coronary system. Vein Graft evaluated. FELIPE evaluated. Pigtail was used to access the left ventricular cavity. Left ventriculogram was not done, pressure was measured Aortic arch angiogram was not done At the end of the procedure the sheath was removed. Closure device was used FINDINGS: Hemodynamics LV 93 over 5 end-diastolic pressure of 5 Aorta 96/59 mean of 75 ANATOMY: Left Main is free of obstructive disease Left Anterior Descending is occluded with patent FELIPE to LAD and vein graft to diagonal artery Left Circumflex has mild to moderate disease at the midportion nonobstructive disease Right Coronory Artery is occluded with patent vein graft to the PDA FELIPE evaluation showed small FELIPE patent to the LAD with good flow distally Vein Graft evaluation showed 2 vein graft The first vein graft is to the diagonal artery with good flow through the diagonal artery and LAD system The second vein graft is to the right posterior descending artery filling the PDA and PLV LV Gram was not done, pressure was measured CONCLUSION: 1. Patent FELIPE to LAD, vein graft to diagonal artery and vein graft to the right PDA with good flow 2. Mild to moderate disease in the mid circumflex artery, nonobstructive disease 3. Normal left ventricular end-diastolic pressure 4. Patient is known to have severe cardiomyopathy, ischemic in nature, we'll continue maximizing therapy DISCUSSION AND RECOMMENDATION: I will continue maximizing medical therapy, consideration for single-chamber ICD is made, will place the patient in [facility]est Anesthesia Type: Conscious Sedation Estimated blood loss (mL): 10 ml Contrast Amount: 20 ML Total Radiation Dose: 385 mGy Post-Procedure Diagnosis Post-operative diagnosis: Coronary artery disease Congestive heart failure, chronic compensated left ventricular systolic dysfunction, ischemic cardiomyopathy Hypertension Hyperlipidemia CT SAMUEL MD Sep 02, 2017 12:35
== END 2017-09-02 17:06 | disposition home or self-care (01) ==
LOC: CATH 11:08 → ICU 12:45 → CATH 17:06
PROVIDERS: ATTEND Internal Medicine Cardiovascular Disease
DX: I25.10 Atherosclerotic heart disease of native coronary artery without angina pectoris (principal); I13.0 Hypertensive heart and chronic kidney disease with heart failure and stage 1 through stage 4 chronic kidney disease, or unspecified chronic kidney disease; I50.22 Chronic systolic (congestive) heart failure; N18.3 Chronic kidney disease, stage 3 (moderate); I25.5 Ischemic cardiomyopathy; I49.3 Ventricular premature depolarization; E78.2 Mixed hyperlipidemia; J44.9 Chronic obstructive pulmonary disease, unspecified; F17.210 Nicotine dependence, cigarettes, uncomplicated; F31.9 Bipolar disorder, unspecified; J90 Pleural effusion, not elsewhere classified; K21.9 Gastro-esophageal reflux disease without esophagitis; F43.10 Post-traumatic stress disorder, unspecified; F98.8 Other specified behavioral and emotional disorders with onset usually occurring in childhood and adolescence; Z95.1 Presence of aortocoronary bypass graft; Z79.02 Long term (current) use of antithrombotics/antiplatelets; Z79.899 Other long term (current) drug therapy; Z88.8 Allergy status to other drugs, medicaments and biological substances
CPT/HCPCS: 36415; 71010; 80053; 80061; 85027; 85610; 85730; 87081; 93005; 93459

== ENCOUNTER → 2018-01-04 | Outpatient (CLI) | payer OTHER ==
[~2018-01-04] MED LIST changes: +ACET-2650 PO; +MULT-35 PO; +SACU1TAB PO
== END ==
LOC: CARD 11:51
PROVIDERS: ATTEND Internal Medicine Cardiovascular Disease
DX: I25.10 Atherosclerotic heart disease of native coronary artery without angina pectoris (principal); I10 Essential (primary) hypertension; E78.2 Mixed hyperlipidemia; J44.9 Chronic obstructive pulmonary disease, unspecified; K21.9 Gastro-esophageal reflux disease without esophagitis; F90.1 Attention-deficit hyperactivity disorder, predominantly hyperactive type; I08.1 Rheumatic disorders of both mitral and tricuspid valves
CPT/HCPCS: 93306

== ENCOUNTER → 2018-10-28 | Outpatient (CLI) | payer OTHER ==
[~2018-10-28] MED LIST changes: +CLON0.5T13 PO; -CLON0.5T3 PO
[2018-10-28 16:47] LABS: HEMOGLOBIN 14.8 G/DL (13.3-17.7); MEAN PLATELET VOLUME 9.5 FL (7.4-10.4); RED CELL DISTRIBUTION WIDTH 14.3 % (10.0-14.5); WHITE BLOOD COUNT 10.8 10^3/uL (4.3-11.0)
[2018-10-28 17:07] LABS: ALBUMIN 4.4 GM/DL (3.2-4.5); BILIRUBIN,TOTAL 0.2 MG/DL (0.1-1.0); CALCIUM 9.7 MG/DL (8.5-10.1); CREATININE SERUM 1.38 MG/DL (0.60-1.30); POTASSIUM 4.2 MMOL/L (3.6-5.0); TOTAL PROTEIN 7.6 GM/DL (6.4-8.2)
== END ==
LOC: LAB 16:27
PROVIDERS: ATTEND Nurse Practitioner
DX: R53.83 Other fatigue (principal)
CPT/HCPCS: 36415; 80053; 83615; 85027

== ENCOUNTER → 2020-01-23 | Outpatient (CLI) | payer OTHER ==
[~2020-01-23] MED LIST changes: -CLON0.5T13 PO; +CLON0.5T4 PO; -METO-370 PO; +METO50TA7 PO; -SACU1TAB PO; +SACU1TAB2 PO
[2020-01-23 09:14] LABS: HEMOGLOBIN 9.8 G/DL (13.3-17.7); MEAN PLATELET VOLUME 9.6 FL (7.4-10.4); RED CELL DISTRIBUTION WIDTH 17.2 % (10.0-14.5)
[2020-01-23 09:19] LABS: ALBUMIN 3.7 GM/DL (3.2-4.5); CHLORIDE 108 MMOL/L (98-107); POTASSIUM 4.4 MMOL/L (3.6-5.0); SODIUM 142 MMOL/L (135-145)
[2020-01-23 09:21] LABS: CALCIUM 8.3 MG/DL (8.5-10.1)
[2020-01-23 09:22] LABS: GLUCOSE 119 MG/DL (70-105); TOTAL PROTEIN 6.1 GM/DL (6.4-8.2)
[2020-01-23 09:23] LABS: CARBON DIOXIDE 23 MMOL/L (21-32)
[2020-01-23 09:24] LABS: BILIRUBIN,TOTAL 0.1 MG/DL (0.1-1.0)
[2020-01-23 09:25] LABS: ALKALINE PHOSPHATASE 103 U/L (40-136)
[2020-01-23 09:26] LABS: CREATININE SERUM 0.93 MG/DL (0.60-1.30); GFR ESTIMATED > 60
[2020-01-23 09:27] LABS: BUN/CREATININE RATIO 19
[2020-01-23 09:28] LABS: ALANINE AMINOTRANSFERASE 26 U/L (0-55)
== END ==
LOC: HH 08:10
PROVIDERS: ATTEND Internal Medicine
DX: M86.9 Osteomyelitis, unspecified (principal); N18.9 Chronic kidney disease, unspecified; Z95.1 Presence of aortocoronary bypass graft; Z87.39 Personal history of other diseases of the musculoskeletal system and connective tissue; Z79.2 Long term (current) use of antibiotics
CPT/HCPCS: 80053; 80202; 85027; 85652; 86141

== ENCOUNTER → 2020-01-30 | Outpatient (CLI) | payer OTHER ==
[2020-01-30 09:25] LABS: HEMOGLOBIN 10.7 G/DL (13.3-17.7); RED CELL DISTRIBUTION WIDTH 16.5 % (10.0-14.5); WHITE BLOOD COUNT 6.2 10^3/uL (4.3-11.0)
[2020-01-30 09:37] LABS: ALANINE AMINOTRANSFERASE 15 U/L (0-55); ALKALINE PHOSPHATASE 109 U/L (40-136); BILIRUBIN,TOTAL < 0.1 MG/DL (0.1-1.0); BUN/CREATININE RATIO 19; CALCIUM 8.6 MG/DL (8.5-10.1); CARBON DIOXIDE 19 MMOL/L (21-32); CHLORIDE 109 MMOL/L (98-107); CREATININE SERUM 1.04 MG/DL (0.60-1.30); GFR ESTIMATED > 60; GLUCOSE 145 MG/DL (70-105); POTASSIUM 3.9 MMOL/L (3.6-5.0); SODIUM 138 MMOL/L (135-145); TOTAL PROTEIN 6.9 GM/DL (6.4-8.2)
[2020-01-30 09:43] LABS: VANCOMYCIN,TROUGH 18.2 UG/ML (10.0-20.0)
== END ==
LOC: HH 09:20
PROVIDERS: ATTEND Family Medicine
DX: M86.9 Osteomyelitis, unspecified (principal); N18.9 Chronic kidney disease, unspecified; Z79.2 Long term (current) use of antibiotics
CPT/HCPCS: 80053; 80202; 85027; 86141

== ENCOUNTER → 2020-02-06 | Outpatient (CLI) | payer OTHER ==
[2020-02-06 13:04] LABS: BASOPHILS % (AUTO) 0 % (0-10); EOSINOPHILS # (AUTO) 0.6 10^3/uL (0.0-0.3); EOSINOPHILS % (AUTO) 9 % (0-10); HEMATOCRIT 35 % (40-54); HEMOGLOBIN 10.8 G/DL (13.3-17.7); LYMPHOCYTES # (AUTO) 1.5 X 10^3 (1.0-4.0); LYMPHOCYTES % (AUTO) 21 % (12-44); MEAN CORPUSCULAR HEMOGLOBIN 29 PG (25-34); MEAN CORPUSCULAR HGB CONC 31 G/DL (32-36); MEAN CORPUSCULAR VOLUME 93 FL (80-99); MEAN PLATELET VOLUME 9.6 FL (7.4-10.4); MONOCYTES # (AUTO) 0.4 X 10^3 (0.0-1.0); MONOCYTES % (AUTO) 6 % (0-12); NEUTROPHILS # (AUTO) 4.5 X 10^3 (1.8-7.8); NEUTROPHILS % (AUTO) 64 % (42-75); PLATELET COUNT 410 10^3/uL (130-400); RED CELL DISTRIBUTION WIDTH 15.9 % (10.0-14.5); WHITE BLOOD COUNT 7.1 10^3/uL (4.3-11.0)
[2020-02-06 13:18] LABS: ALANINE AMINOTRANSFERASE 21 U/L (0-55); ALBUMIN 3.9 GM/DL (3.2-4.5); ALKALINE PHOSPHATASE 113 U/L (40-136); BILIRUBIN,TOTAL < 0.1 MG/DL (0.1-1.0); BUN/CREATININE RATIO 20; CALCIUM 8.7 MG/DL (8.5-10.1); CARBON DIOXIDE 20 MMOL/L (21-32); CHLORIDE 111 MMOL/L (98-107); CREATININE SERUM 0.99 MG/DL (0.60-1.30); GFR ESTIMATED > 60; GLUCOSE 114 MG/DL (70-105); POTASSIUM 4.1 MMOL/L (3.6-5.0); SODIUM 141 MMOL/L (135-145); TOTAL PROTEIN 6.8 GM/DL (6.4-8.2)
== END ==
LOC: HH 08:00
PROVIDERS: ATTEND Family Medicine
DX: M86.9 Osteomyelitis, unspecified (principal); N18.9 Chronic kidney disease, unspecified; Z79.2 Long term (current) use of antibiotics
CPT/HCPCS: 80053; 80202; 85025; 86141

== ENCOUNTER → 2020-02-13 | Outpatient (CLI) | payer OTHER ==
[2020-02-13 09:25] LABS: HEMOGLOBIN 11.3 G/DL (13.3-17.7); MEAN PLATELET VOLUME 9.3 FL (7.4-10.4); RED CELL DISTRIBUTION WIDTH 15.5 % (10.0-14.5)
[2020-02-13 09:48] LABS: ALANINE AMINOTRANSFERASE 17 U/L (0-55); ALKALINE PHOSPHATASE 123 U/L (40-136); BILIRUBIN,TOTAL 0.1 MG/DL (0.1-1.0); BUN/CREATININE RATIO 17; CALCIUM 8.7 MG/DL (8.5-10.1); CARBON DIOXIDE 20 MMOL/L (21-32); CHLORIDE 110 MMOL/L (98-107); CREATININE SERUM 1.08 MG/DL (0.60-1.30); GFR ESTIMATED > 60; GLUCOSE 116 MG/DL (70-105); POTASSIUM 4.4 MMOL/L (3.6-5.0); SODIUM 140 MMOL/L (135-145); TOTAL PROTEIN 7.1 GM/DL (6.4-8.2)
[2020-02-13 09:54] LABS: VANCOMYCIN,TROUGH 14.4 UG/ML (10.0-20.0)
== END ==
LOC: HH 09:19
PROVIDERS: ATTEND Family Medicine
DX: Z01.89 Encounter for other specified special examinations (principal)
CPT/HCPCS: 80053; 80202; 85027; 86141